=== PATIENT | female | born 1955 | race Caucasian/White ===

== ENCOUNTER → 2017-01-28 | Outpatient (CLI) | payer OTHER, MEDICAID | LOC: BMCIMAGING 09:07 → MERGE 09:07 | PROVIDERS: ATTEND Physician Assistant | DX: M16.12 Unilateral primary osteoarthritis, left hip (principal) ==

== ENCOUNTER → 2017-02-05 | Outpatient (CLI) | payer OTHER, MEDICAID | LOC: FIMAGING 09:30 | PROVIDERS: ATTEND Orthopaedic Surgery Orthopaedic Surgery of the Spine | DX: Z09 Encounter for follow-up examination after completed treatment for conditions other than malignant neoplasm (principal); Z98.1 Arthrodesis status ==

== ENCOUNTER → 2017-02-11 | Outpatient (CLI) | payer OTHER, MEDICAID | LOC: BMCIMAGING 08:50 | PROVIDERS: ATTEND Orthopaedic Surgery | DX: M25.552 Pain in left hip (principal) ==

== ENCOUNTER → 2017-04-22 | Outpatient (CLI) | payer OTHER, MEDICAID ==
[~2017-04-22] MED LIST: MIDAZOLAM 2 MG/2 ML VIAL ONE
== END ==
LOC: FIMAGING 10:42
PROVIDERS: ATTEND Orthopaedic Surgery
DX: Z01.818 Encounter for other preprocedural examination (principal); M16.12 Unilateral primary osteoarthritis, left hip; Z96.641 Presence of right artificial hip joint
CPT/HCPCS: J2250

== ENCOUNTER 2017-04-27 10:00 | Inpatient (IN) | payer OTHER, MEDICAID ==
[2017-04-21 10:57] LABS: % IMMATURE GRANULYOCYTES 0.2 % (0.0-1.1); ABSOLUTE IMMATURE GRANULOCYTES 0.01 10^3/uL (0.00-0.10); ADD DIFF? NO; ADD MORPH? NO; ADD SCAN? NO; ATYPICAL LYMPHOCYTE FLAG 0 (0-99); FRAGMENT RBC FLAG 20 (0-99); HEMATOCRIT 44.7 % (38.0-47.0); LEFT SHIFT FLG 0 (0-99); LIPEMIA HEMOLYSIS FLAG 80 (0-99); MEAN CELL HEMOGLOBIN 25.4 pg (27.9-34.1); MEAN CELL HEMOGLOBIN CONCENTR. 31.3 g/dL (32.4-36.7); MEAN CELL VOLUME 81.1 fL (81.5-99.8); PLATELET CLUMPS FLAG 0 (0-99); PLATELET COUNT 361 10^3/uL (150-400); RED BLOOD CELL COUNT 5.51 10^6/uL (4.18-5.33)
[~2017-04-27 10:00] MED LIST changes: +CALCIUM CHLORIDE 1 GM/10 ML INJ ONE; +CITRATE DEXTROSE SOLN 500 ML BAG ONE; -MIDAZOLAM 2 MG/2 ML VIAL ONE; +THROMBIN (BOVINE) 5,000 UNIT VIAL TP ONE; +ceFAZolin 1 GM/5 ML SYR ONE
[2017-04-27] MEDS ORDERED: FAMOTIDINE 20 MG TAB PO ONE (10:30)
[2017-04-27] MEDS ORDERED: ACETAMINOPHEN 325 MG TAB PO ONE (10:30)
[2017-04-27] MEDS ORDERED: TRANEXAMIC ACID IV ONE (10:30)
[2017-04-27] MEDS ORDERED: NS IV ONE (10:30)
[2017-04-27] MEDS ORDERED: CHLORHEXIDINE GLUC HIBICLENS 118 ML BTL TP ONE (10:30)
[2017-04-27] MEDS ORDERED: CEFAZOLIN 2 GM/DEXTROSE/100 ML BAG IV ONE (10:33)
[2017-04-27] MEDS ORDERED: LR 1,000 ML IV ONE (10:53)
[2017-04-27] MEDS ORDERED: ROPI/epiNEPH/KETOROLAC/morphINE JOINT COCKTAIL IU ONE (11:00)
[2017-04-27] MEDS ORDERED: PROPOFOL/EMULSION 500 MG/50 ML BOTTLE IV ONE (13:11)
[2017-04-27] MEDS ORDERED: VANCOMYCIN 1 GM VIAL ONE (14:00)
[2017-04-27] MEDS ORDERED: THROMBIN (BOVINE) 20,000 UNIT VIAL TP ONE (14:13)
[2017-04-27] MEDS ORDERED: HYDROmorphONE/DILAUDID 2 MG/ML INJ ONE (14:44)
[2017-04-27] MEDS ORDERED: PHENYLEPHRINE HCL 100 MCG/ML SYR ONE (15:02)
[2017-04-27] MEDS ORDERED: DEXAMETHASONE 4 MG/ML VIAL ONE (15:02)
[2017-04-27] MEDS ORDERED: epHEDrine SULFATE 10 MG/ML SYR ONE ×2 (15:02→15:47)
[2017-04-27] MEDS ORDERED: ROCURONIUM 50 MG/5 ML VIAL ONE (15:31)
[2017-04-27] MEDS ORDERED: ONDANSETRON 4 MG/2 ML VIAL ONE (15:50)
[2017-04-27] MEDS ORDERED: VASOPRESSIN 20 UNIT/ML VIAL ONE (15:50)
[2017-04-27] MEDS ORDERED: GLYCOPYRROLATE 0.2 MG/1 ML VIAL ONE (15:51)
[2017-04-27] MEDS ORDERED: NEOSTIGMINE METHYLSULFATE 5 MG/5 ML SYR ONE (15:51)
[2017-04-27] MEDS ORDERED: PHARMACY PAIN CONSULT 1 EA MISC PRN (16:03)
[2017-04-27] MEDS ORDERED: MAGNESIUM HYDROXIDE 30 ML UDCUP PO PRN (16:03)
[2017-04-27] MEDS ORDERED: PROMETHAZINE HCL 25 MG/ML INJ IVP PRN (16:03)
[2017-04-27] MEDS ORDERED: PROMETHAZINE HCL 25 MG SUPPR PR PRN (16:03)
[2017-04-27] MEDS ORDERED: diphenhydrAMINE 25 MG CAP PO PRN (16:03)
[2017-04-27] MEDS ORDERED: TEMAZEPAM 15 MG CAP PO PRN (16:03)
[2017-04-27] MEDS ORDERED: POLYETHYLENE GLYCOL 3350 17 GM PKT PO PRN (16:03)
[2017-04-27] MEDS ORDERED: LACTULOSE 20 GM/30 ML UDCUP PO PRN (16:03)
[2017-04-27] MEDS ORDERED: BISACODYL 10 MG SUPP PR PRN (16:03)
[2017-04-27] MEDS ORDERED: ONDANSETRON 4 MG/2 ML VIAL IVP PRN (16:03)
[2017-04-27] MEDS ORDERED: ONDANSETRON DISINTEGRATING 4 MG TAB PO PRN (16:03)
[2017-04-27] MEDS ORDERED: MEPERIDINE 25 MG/ML SYR ONE (16:18)
[2017-04-27] MEDS ORDERED: LR 1,000 ML IV SCH (16:30)
[2017-04-27] MEDS: ACETAMINOPHEN 325 MG TAB PO SCH (18:29)
[2017-04-27] MEDS: HYDROmorphONE/DILAUDID 1 MG/ML SYR IVP PRN ×2 (19:09→21:49)
[2017-04-27] MEDS: DIAZEPAM 5 MG TAB PO PRN (19:51)
[2017-04-27] MEDS: SENNOSIDES/DOCUSATE SODIUM TAB PO SCH (19:56)
[2017-04-27] MEDS: FAMOTIDINE 20 MG TAB PO SCH (19:56)
[2017-04-27] MEDS: ASPIRIN 325 MG TAB PO SCH (19:56)
[2017-04-27] MEDS ORDERED: oxyCODONE CR 15 MG TAB PO SCH (21:00)
[2017-04-27] MEDS ORDERED: CYCLOSPORINE 0.05% 1 EACH BOX EACHEYE SCH (21:00)
[2017-04-27] MEDS: traMADol 50 MG TAB PO PRN (21:20)
[2017-04-27] MEDS: oxyCODONE IR 5 MG TAB PO PRN (21:55)
[2017-04-27] MEDS: RESTASIS EYE DROPS EACHEYE SCH (21:57)
[2017-04-28] MEDS: ACETAMINOPHEN 325 MG TAB PO SCH ×3 (00:10→12:11)
[2017-04-28] MEDS: oxyCODONE IR 5 MG TAB PO PRN ×3 (02:07→12:12)
[2017-04-28] MEDS: DIAZEPAM 5 MG TAB PO PRN ×2 (02:07→08:36)
[2017-04-28] MEDS: traMADol 50 MG TAB PO PRN (04:35)
[2017-04-28] MEDS: HYDROmorphONE/DILAUDID 1 MG/ML SYR IVP PRN (04:40)
[2017-04-28 05:01] LABS: HEMATOCRIT 27.7 % (38.0-47.0); HEMOGLOBIN 8.9 g/dL (12.6-16.3)
[2017-04-28] MEDS ORDERED: DULoxetine 60 MG CAP PO SCH ×2 (05:30→09:00)
--- NOTE | 2017-04-28 07:07 | PDIAF ---
- Diagnosis Diagnosis: left hip djd Code Status: Full Code - Medication Management Discharge Medications: Medications to Continue on Transfer DULoxetine [Cymbalta 60 MG (*)] 60 mg PO DAILY 04/13/17 [Last Taken 04/27/17 05: 30] Herbals/Supplements -Info Only 1 ea PO DAILY 04/13/17 [Last Taken 04/20/17] Multivitamins [Multivitamin (*)] 1 each PO DAILY 04/13/17 [Last Taken 04/20/17] Tapentadol HCl [Nucynta ER] 100 mg PO DAILY 04/13/17 [Last Taken Unknown] oxyCODONE CR [Oxycontin] 15 mg PO BID 04/13/17 [Last Taken 04/27/17 05:30] cycloSPORINE 0.05% [Restasis Opht Drops(*)] 1 drop EACHEYE BID 04/14/17 [Last Taken 04/27/17 05:30] Aspirin [Aspirin 325 mg (*)] 325 mg PO DAILY #0 tab 04/28/17 [Last Taken Unknown ] Diazepam [Valium 5 MG (*)] 5 mg PO Q6HRS PRN #30 tab 04/28/17 [Last Taken Unknown] oxyCODONE IR [Oxycodone Ir (*)] 5 - 15 mg PO Q4 PRN #90 tab 04/28/17 [Last Taken Unknown] Discharge Medications: Refer to the Discharge Home Medication list for PRN reason. - Orders Services needed: Physical Therapy Diet Recommendation: no restrictions on diet Diet Texture: Regular Texture Diet Activity/Weight Bearing Restrictions: wbat. rom as maribell, anterior hip precautions. daily dressing changes. may shower without bandage. no soaking or immersion. seek attn for drainage, redness, swelling. f/u at two weeks. aspirin 325 mg po daily - Follow Up Care Current Providers and Referrals: Kellee Nieves MD [Primary Care Provider] -
[2017-04-28 07:55] VITALS: BP 107/67; PULSE 105; RESP 18; TEMP 98; O2SAT 93
[2017-04-28] MEDS: ASPIRIN 325 MG TAB PO SCH (08:29)
[2017-04-28] MEDS: FAMOTIDINE 20 MG TAB PO SCH (08:30)
[2017-04-28] MEDS: SENNOSIDES/DOCUSATE SODIUM TAB PO SCH (08:31)
[2017-04-28] MEDS: RESTASIS EYE DROPS EACHEYE SCH (08:33)
[2017-04-28] MEDS ORDERED: MULTIVITAMINS 1 EACH TAB PO SCH (09:00)
[2017-04-28] MEDS ORDERED: TAPENTADOL HCL 100 MG PO SCH (09:00)
[2017-04-28] MEDS ORDERED: TAPENTADOL HCL 50 MG TAB PO SCH (09:00)
[2017-04-28] MEDS ORDERED: oxyCODONE CR 15 MG TAB PO SCH (09:00)
[2017-04-28] MEDS ORDERED: Herbals/Supplements -Info Only PO SCH (09:00)
--- NOTE | 2017-04-28 09:57 | GDS ---
[f rep st] DISCHARGE SUMMARY DISCHARGE DIAGNOSIS: Left hip degenerative joint disease. DISCHARGE DIAGNOSIS: Left hip degenerative joint disease. PROCEDURE: Left total hip arthroplasty. 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 She has previously undergone right total hip replacement. Her left hip she has intractabl e pain. She has failed all attempts at conservative management. I have, therefore, recommended tot al hip replacement. She understood the risks, benefits, alternatives, and wished to proceed. Writt en consent was signed and placed in the patient's chart. HOSPITAL COURSE: The patient was admitted to the floor after uncomplicated total hip arthroplasty. She tolerated the procedure well. Postoperatively, she had issues of pain control, but has chronic pain issues. At the time of discha rge, she is tolerating an oral diet. Her pain is well controlled on oral medicines. She is voiding without difficulty. Her dressing is clean, dry, and intact with minimal serous drainage. She has intact ankle plantar flexion, dorsiflexion, EHL function, 4/5 hip flexion strength. Sensation is in tact to light touch throughout both lower extremities. There is negative Homans bilaterally. X-ray s are stable. There is no fracture or lucency. DISCHARGE ACTIVITY: She is weightbearing as tolerated. Anterior hip precautions. Daily dressing c hanges. May shower without the bandage. No soaking or immersion. Follow up in 2 weeks. Seek attention for increasing redness, swelling, drainage or discharge. DISCHARGE MEDICATIONS: Oxycodone 5 mg 1-3 every 4 hours p.r.n. pain and aspirin 325 mg daily. /[id number]/MODL
--- NOTE | 2017-04-28 11:31 | WOCRNPDOC ---
[facility] Advanced Assessment Note - Skin Integrity Problem, Advanced Assess Right Gluteal Cleft Blister Dressing Type: Allevyn Life Dressing Description: Clean/Dry, Intact Exudate Amount: None Integumentary Issue Intervention: Visualized Under Dressing Sandra Wound Tissue: Erythema, Non-blanching, Indurated Sandra Wound Swelling: Mild Wound Bed Color: [place] Wound Bed Constitution: Smooth Tissue, De-roofed Serous Blister Wound Edges: Epithelizing, Attached, Well Defined, Scarred Site Odor: None Site Measurement - Head-to-Toe Length X Width X Depth (cm): 0.6 x 0.5 x 0.2 Skin Integrity Problem Comment: De-roofed blister opening is clean, with a healing appearance. Flat, pink scar tissue is visible at left of gluteal cleft, opposite the open site, and two small, flat pink scars are visible adjacent to the coccyx. When asked whether she has had any pressure injuries (or "bedsores" ) in the past, patient reports that, "I get blisters different places when I eat sugar, because of fibromyalgia," and that, at home, she treats them with hydrogen peroxide and tea tree oil. Discussed alternatives for home care, including simple cleaning with soap and water, use of a dressing or a moisture barrier/skin protectant if helpful to protect from chafing. Provided with Calazime as an example of a protectant. Report to FRANCISCO J Alves.
== END 2017-04-28 13:06 | disposition home health service (06) | DRG 470 ==
LOC: F3N 10:00
PROVIDERS: ADMIT Orthopaedic Surgery; ATTEND Orthopaedic Surgery
PROC: 0SRB04Z Replacement of Left Hip Joint with Ceramic on Polyethylene Synthetic Substitute, Open Approach (ICD-10-PCS; principal; 2017-04-27 11:30)
DX: M16.12 Unilateral primary osteoarthritis, left hip (principal); G89.29 Other chronic pain; M79.7 Fibromyalgia; Z96.641 Presence of right artificial hip joint
CPT/HCPCS: 97110-GP; 97161-GP; 97165-GO; G8978-GP-CI; G8979-GP-CI; G8980-GP-CI; G8987-GO-CI; G8988-GO-CI; G8989-GO-CI; J0171; J0690; J1100; J1170; J1200; J1885; J2370; J2405; J2704; J2710; J2795; J3370; J7060

== ENCOUNTER 2017-05-06 16:27 | Emergency (ER) | payer OTHER, MEDICAID ==
--- NOTE | 2017-05-06 16:52 | EDPHY ---
H & P Stated Complaint: l hip surg on 04/27 having prob with incision/increased pain Time Seen by Provider: 05/06/17 16:40 HPI/ROS: CHIEF COMPLAINT: Left hip swelling HISTORY OF PRESENT ILLNESS: 61-year-old female postop day 8 post left hip arthroplasty by Dr. Noel Figueroa, has been performing daily physical therapy, ambulating, noticed last evening soft tissue swelling over her greater trochanteric region as well as faint erythema to her renee. No drainage. She has decreased ambulation secondary to pain. REVIEW OF SYSTEMS: A ten point review of systems was performed and is negative with the exception of the items mentioned in the HPI PAST MEDICAL & SURGICAL HISTORY: Postop day 8 post left hip arthroplasty SOCIAL HISTORY: nonsmoker PHYSICAL EXAM (Prior to examination, patient consented to physical exam, hands were washed and my usual and customary physical exam procedures followed) 1) GENERAL: Well-developed, well-nourished, alert and oriented. Appears nontoxic . 2) HEAD: Normocephalic, atraumatic 3) HEENT: . Sclera anicteric. 4) NECK: Full range of motion, no meningeal signs. 5) LUNGS: Clear auscultation bilaterally 6) HEART: Regular rate and rhythm, no murmur, no heave, no gallop. 7) ABDOMEN: No guarding, no rebound, no focal tenderness, 8) MUSCULOSKELETAL: Left lower extremity: Greater trochanteric suture line in place with no dehiscence, renee in place, there is exquisitely faint erythema which I do not think is consistent with cellulitis. There is soft tissue swelling and fluctuance in this area with no induration or erythema. She has limited range of motion of the left hip. No crepitus. Negative Homans no palpable cord. Soft compartments of the lower extremity. DP PT pulses are 2+ with brisk capillary refill . Normal color, normal warm foot 9) BACK: no visual or palpable abnormality. 10) SKIN: No rash, no petechiae. DIFFERENTIAL DIAGNOSIS: [in no particular order including but not limited to septic arthritis, postsurgical swelling, cellulitis, necrotizing fasciitis - Personal History Current Tetanus/Diphtheria Vaccine: Unsure - Medical/Surgical History Hx Asthma: No Hx Chronic Respiratory Disease: No Hx Diabetes: No Hx Cardiac Disease: No Hx Renal Disease: No Hx Cirrhosis: No Hx Alcoholism: No Hx HIV/AIDS: No Hx Splenectomy or Spleen Trauma: No Other PMH: chronic back pain, DJD, TBI AT 12YR, DYSTONIA BILATERAL ARMS, RT TOTAL HIP 2004, BILATERAL NEUROPATHY LOWER LEGS l hip surg - Social History Smoking Status: Never smoked Constitutional: Initial Vital Signs Temperature (C) 36.6 C 05/06/17 16:35 Heart Rate 113 H 05/06/17 16:35 Respiratory Rate 20 05/06/17 16:35 Blood Pressure 130/77 H 05/06/17 16:35 O2 Sat (%) 94 05/06/17 16:35 O2 Delivery Mode Room Air Allergies/Adverse Reactions: Iodinated Contrast Media - Oral and [Iodinated Contrast Media - IV Dye] Allergy (Severe, Verified 05/06/17 16:34) Hives etodolac [From Lodine] Allergy (Unknown, Verified 05/06/17 16:34) iodine Allergy (Unknown, Verified 05/06/17 16:34) Unknown cephalexin monohydrate [From Keflex] Allergy (Verified 05/06/17 16:34) clindamycin Allergy (Verified 05/06/17 16:34) cyclobenzaprine HCl [From Flexeril] Allergy (Verified 05/06/17 16:34) erythromycin base [Erythromycin Base] Allergy (Verified 05/06/17 16:34) fentanyl Allergy (Verified 05/06/17 16:34) gabapentin [From Neurontin] Allergy (Verified 05/06/17 16:34) lidocaine Allergy (Verified 05/06/17 16:34) metronidazole [From Flagyl] Allergy (Verified 05/06/17 16:34) morphine Allergy (Verified 05/06/17 16:34) Penicillins Allergy (Verified 05/06/17 16:34) SWELLING ropivacaine HCl [From Naropin] Allergy (Verified 05/06/17 16:34) Sulfa (Sulfonamide Antibiotics) Allergy (Verified 05/06/17 16:34) Tetracyclines Allergy (Verified 05/06/17 16:34) trihexyphenidyl HCl [From Artane] Allergy (Verified 05/06/17 16:34) Home Medications: Medication Instructions Recorded DULoxetine [Cymbalta 60 MG (*)] 60 mg PO DAILY 04/13/17 Herbals/Supplements -Info Only 1 ea PO DAILY 04/13/17 Multivitamins [Multivitamin (*)] 1 each PO DAILY 04/13/17 Tapentadol HCl [Nucynta ER] 100 mg PO DAILY 04/13/17 oxyCODONE CR [Oxycontin] 15 mg PO BID 04/13/17 cycloSPORINE 0.05% [Restasis Opht 1 drop EACHEYE BID 04/14/17 Drops(*)] Aspirin [Aspirin 325 mg (*)] 325 mg PO DAILY #0 tab 04/28/17 Diazepam [Valium 5 MG (*)] 5 mg PO Q6HRS PRN #30 tab 04/28/17 oxyCODONE IR [Oxycodone Ir (*)] 5 - 15 mg PO Q4 PRN #90 tab 04/28/17 Medical Decision Making - Diagnostics Imaging Results: Imaging Impressions Hip X-Ray 05/06/17 16:48 Impression: Stable positioning of bilateral hip arthroplasties, compared to 2016. Extremity Venous Study 05/06/17 16:52 Impression: No deep venous thrombosis left leg. Results called to Javier Herrera PA-C, at 5:40 PM. Images reviewed by myself Procedures: Procedure: Aspiration of suspected seroma Indications: Suspected seroma at surgical site Indications risks benefits discussed with patient including but not limited to infection, bleeding. Skin was prepped draped normal sterile fashion. The skin wheal was made with 1% lidocaine with epinephrine. An 18 gauge needle was introduced lateral to the incision site and 30 cc of serosanguineous material aspirated and sent to laboratory for wound culture. Patient tolerated procedure well ED Course/Re-evaluation: 6:20 p.m.: Phone consultation Dr. Noel Figueroa, discussed physical exam findings, normal white blood cell count. He thinks that postoperative seroma is more than likely in this patient. He recommended wound aspiration using sterile technique and follow up in the office in next 1-2 days with EZ Bangura Wound aspiration was performed by myself revealing serosanguineous material which is sent to laboratory for culture. Doubt infectious etiology. Doubt cellulitis. Doubt wound infection. Plan will be discharge home, follow up in orthopedic office or Thursday (today is Thursday). Patient is comfortable with this plan. Patient also seen and examined by Dr De La Cruz - Data Points Laboratory Results: Laboratory Results 05/06/17 18:03 05/06/17 18:03 05/06/17 05/06/17 05/06/17 18:45 18:03 18:03 WBC 5.55 10^3/uL 10^3/uL (3.80-9.50) RBC 3.51 10^6/uL L 10^6/uL (4.18-5.33) Hgb 9.1 g/dL L g/dL (12.6-16.3) Hct 29.0 % L % (38.0-47.0) MCV 82.6 fL fL (81.5-99.8) MCH 25.9 pg L pg (27.9-34.1) MCHC 31.4 g/dL L g/dL (32.4-36.7) RDW 18.5 % H % (11.5-15.2) Plt Count 452 10^3/uL H 10^3/uL (150-400) MPV 8.7 fL fL (8.7-11.7) Neut % (Auto) 52.1 % % (39.3-74.2) Lymph % (Auto) 31.4 % % (15.0-45.0) Pepin % (Auto) 10.6 % % (4.5-13.0) Eos % (Auto) 4.7 % % (0.6-7.6) Baso % (Auto) 0.7 % % (0.3-1.7) Nucleat RBC Rel Count 0.0 % % (0.0-0.2) Absolute Neuts (auto) 2.89 10^3/uL 10^3/uL (1.70-6.50) Absolute Lymphs (auto) 1.74 10^3/uL 10^3/uL (1.00-3.00) Absolute Monos (auto) 0.59 10^3/uL 10^3/uL (0.30-0.80) Absolute Eos (auto) 0.26 10^3/uL 10^3/uL (0.03-0.40) Absolute Basos (auto) 0.04 10^3/uL 10^3/uL (0.02-0.10) Absolute Nucleated RBC 0.00 10^3/uL 10^3/uL (0-0.01) Immature Gran % 0.5 % % (0.0-1.1) Immature Gran # 0.03 10^3/uL 10^3/uL (0.00-0.10) Sodium 139 mEq/L mEq/L (134-144) Potassium 4.8 mEq/L mEq/L (3.5-5.2) Chloride 107 mEq/L mEq/L (97-110) Carbon Dioxide 24 mEq/l mEq/l (22-31) Anion Gap 8 mEq/L mEq/L (8-16) BUN 17 mg/dL mg/dL (7-23) Creatinine 0.9 mg/dL mg/dL (0.6-1.0) Estimated GFR > 60 Glucose 113 mg/dL H mg/dL (70-100) Calcium 9.7 mg/dL mg/dL (8.5-10.4) Fluid Source Pending Fluid Color Pending Fluid Appearance Pending Fluid WBC Pending Fluid RBC Pending Departure - Departure Disposition: Home, Routine, Self-Care Clinical Impression: Seroma Condition: Good Instructions: Postoperative Bleeding (ED) Additional Instructions: Return to the ER if you develop fever, redness, or any other symptoms that concern you Referrals: Annette Bangura PA [Physician Air Quality Consultant] - 1 day without fail
[2017-05-06 17:49] VITALS: RESP 18
[2017-05-06 18:13] LABS: % IMMATURE GRANULYOCYTES 0.5 % (0.0-1.1); ABSOLUTE IMMATURE GRANULOCYTES 0.03 10^3/uL (0.00-0.10); ADD DIFF? NO; ADD MORPH? NO; ADD SCAN? NO; ATYPICAL LYMPHOCYTE FLAG 0 (0-99); FRAGMENT RBC FLAG 0 (0-99); HEMOGLOBIN 9.1 g/dL (12.6-16.3); LEFT SHIFT FLG 0 (0-99); LIPEMIA HEMOLYSIS FLAG 80 (0-99); MEAN CELL HEMOGLOBIN 25.9 pg (27.9-34.1); MEAN CELL HEMOGLOBIN CONCENTR. 31.4 g/dL (32.4-36.7); MEAN CELL VOLUME 82.6 fL (81.5-99.8); MEAN PLATELET VOLUME 8.7 fL (8.7-11.7); PLATELET CLUMPS FLAG 0 (0-99); PLATELET COUNT 452 10^3/uL (150-400); RED BLOOD CELL COUNT 3.51 10^6/uL (4.18-5.33); RED CELL DISTRIBUTION WIDTH 18.5 % (11.5-15.2)
[2017-05-06 18:29] LABS: ANION GAP 8 mEq/L (8-16); CALCIUM 9.7 mg/dL (8.5-10.4); CARBON DIOXIDE 24 mEq/l (22-31); CHLORIDE 107 mEq/L (97-110); CREATININE 0.9 mg/dL (0.6-1.0); GLOMERULAR FILTRATION RATE > 60; GLUCOSE 113 mg/dL (70-100); POTASSIUM 4.8 mEq/L (3.5-5.2); SODIUM 139 mEq/L (134-144)
[2017-05-06 19:21] VITALS: BP 108/81; PULSE 97; TEMP 98.1; O2SAT 95
== END 2017-05-06 19:22 | disposition home or self-care (01) ==
PROC: 0J9C3ZZ Drainage of Pelvic Region Subcutaneous Tissue and Fascia, Percutaneous Approach (ICD-10-PCS; principal; 2017-05-06)
DX: M96.842 Postprocedural seroma of a musculoskeletal structure following a musculoskeletal system procedure (principal); Z79.82 Long term (current) use of aspirin

== ENCOUNTER 2017-05-08 17:44 | Emergency (ER) | payer OTHER, MEDICAID ==
--- NOTE | 2017-05-08 19:14 | EDPHY ---
H & P Stated Complaint: Swelling at surg site again;wants it drained (see ED visit ) Source: Patient Exam Limitations: No limitations - Medical/Surgical History Hx Asthma: No Hx Chronic Respiratory Disease: No Hx Diabetes: No Hx Cardiac Disease: No Hx Renal Disease: No Hx Cirrhosis: No Hx Alcoholism: No Hx HIV/AIDS: No Hx Splenectomy or Spleen Trauma: No Other PMH: chronic back pain, DJD, TBI AT 12YR, DYSTONIA BILATERAL ARMS, RT TOTAL HIP 2004, BILATERAL NEUROPATHY LOWER LEGS, ant L hip surg - Social History Smoking Status: Never smoked Time Seen by Provider: 05/08/17 18:01 HPI/ROS: CHIEF COMPLAINT: requesting seroma drainage HISTORY OF PRESENT ILLNESS: 61-year-old female presents emergency department requesting a drainage of a left hip seroma. Patient was seen in the emergency department 2 days ago and had this drained. Patient had a left total hip replacement by Dr. Figueroa 10 days ago and has been doing well performing physical therapy, 3 nights ago developed soft tissue swelling over her greater trochanteric region, came to the emergency department and had this drained, no signs of infection no fevers. Patient was seen by the PA in her orthopedist's office yesterday and was told to come to the ER to have this drained if it reoccurred over the weekend. REVIEW OF SYSTEMS: A comprehensive 10 point review of systems is otherwise negative aside from elements mentioned in the history of present illness. (Angela Christie) - Physical Exam Exam: Physical Exam Gen: Alert and Oriented, NAD HEENT: PERRL, moist mucous membranes NECK: no meningismus CV: regular rate and regular rhythm PULM: CTAB, no wheezes ABDOMEN: soft, non tender to palpation, BS present BACK: No CVA tenderness NEURO: Neurologically grossly intact EXTREMITIES: Left hip renee in place, no dehiscence, no erythema or drainage , there is soft tissue swelling and mild fluctuance with no induration or erythema. Limited range of motion of left hip, no crepitus. 2+ pedal pulses, sensation intact to light touch. PSYCH: answers questions appropriately. (Angela Christie) Constitutional: Initial Vital Signs Temperature (C) 36.6 C 05/08/17 17:45 Heart Rate 112 H 06/16/17 17:45 Respiratory Rate 18 05/08/17 17:45 Blood Pressure 120/69 05/08/17 17:45 O2 Sat (%) 97 05/08/17 17:45 O2 Delivery Mode Room Air Allergies/Adverse Reactions: Iodinated Contrast Media - Oral and [Iodinated Contrast Media - IV Dye] Allergy (Severe, Verified 05/08/17 17:44) Hives etodolac [From Lodine] Allergy (Unknown, Verified 05/08/17 17:44) iodine Allergy (Unknown, Verified 05/08/17 17:44) Unknown cephalexin monohydrate [From Keflex] Allergy (Verified 05/08/17 17:44) clindamycin Allergy (Verified 05/08/17 17:44) cyclobenzaprine HCl [From Flexeril] Allergy (Verified 05/08/17 17:44) erythromycin base [Erythromycin Base] Allergy (Verified 05/08/17 17:44) fentanyl Allergy (Verified 05/08/17 17:44) gabapentin [From Neurontin] Allergy (Verified 05/08/17 17:44) lidocaine Allergy (Verified 05/08/17 17:44) metronidazole [From Flagyl] Allergy (Verified 05/08/17 17:44) morphine Allergy (Verified 05/08/17 17:44) Penicillins Allergy (Verified 05/08/17 17:44) SWELLING ropivacaine HCl [From Naropin] Allergy (Verified 05/08/17 17:44) Sulfa (Sulfonamide Antibiotics) Allergy (Verified 05/08/17 17:44) Tetracyclines Allergy (Verified 05/08/17 17:44) trihexyphenidyl HCl [From Artane] Allergy (Verified 05/08/17 17:44) Home Medications: Medication Instructions Recorded DULoxetine [Cymbalta 60 MG (*)] 60 mg PO DAILY 04/13/17 Herbals/Supplements -Info Only 1 ea PO DAILY 04/13/17 Multivitamins [Multivitamin (*)] 1 each PO DAILY 04/13/17 Tapentadol HCl [Nucynta ER] 100 mg PO DAILY 04/13/17 oxyCODONE CR [Oxycontin] 15 mg PO BID 04/13/17 cycloSPORINE 0.05% [Restasis Opht 1 drop EACHEYE BID 04/14/17 Drops(*)] Aspirin [Aspirin 325 mg (*)] 325 mg PO DAILY #0 tab 04/28/17 Diazepam [Valium 5 MG (*)] 5 mg PO Q6HRS PRN #30 tab 04/28/17 oxyCODONE IR [Oxycodone Ir (*)] 5 - 15 mg PO Q4 PRN #90 tab 04/28/17 Medical Decision Making Procedures: Procedure: Aspiration of suspected seroma Indications: Suspected cerumen surgical site Indications, risks and benefits were discussed with the patient including but not limited to infection, bleeding. Skin was prepped and draped with normal sterile fashion, the skin wheal was made with 1% lidocaine without epinephrine, an 18 gauge needle was introduced lateral to the incision site, no fluid returned. (Angela Christie) ED Course/Re-evaluation: I had a long discussion with the patient that draining this again could introduce infection and it does not look significant to need a drainage in my opinion. I discussed the risks including introducing infection, patient still would like this drained. I attempted to drain is in sterile fashion, no fluid returned. Pressure dressing was placed and patient will follow up with her orthopedist as scheduled on Thursday. She is given strict return precautions for worsening symptoms. I have told her to keep pressure dressing in place until follow-up. ( Angela Christie) I did not see this patient while she was in the emergency department. However her care was discussed with the nurse practitioner while the patient was in the department. I agree with treatment plan and management (Reginaldo Osorio) Departure - Departure Disposition: Home, Routine, Self-Care Clinical Impression: Seroma Condition: Good Instructions: Swollen Hip Joint (ED) Additional Instructions: Rest, keep compression on this as much as possible until you follow up with your orthopedist as scheduled on Thursday. Return to the emergency department for worsening symptoms, new symptoms or concerns. Referrals: Noel Figueroa MD [Medical Doctor] - As per Instructions
[2017-05-08 19:52] VITALS: BP 130/74; PULSE 80; RESP 14; TEMP 98.4; O2SAT 94
== END 2017-05-08 19:52 | disposition home or self-care (01) ==
PROC: 0H9JXZZ Drainage of Left Upper Leg Skin, External Approach (ICD-10-PCS; principal; 2017-05-08)
DX: M96.842 Postprocedural seroma of a musculoskeletal structure following a musculoskeletal system procedure (principal); Z79.82 Long term (current) use of aspirin

== ENCOUNTER 2017-05-25 15:01 | Emergency (ER) | payer OTHER, MEDICAID ==
[2017-05-25 15:08] VITALS: O2SAT 94
--- NOTE | 2017-05-25 15:25 | EDPHY ---
H & P Stated Complaint: l hip surgery 04/27 dr figueroa/having prob with pain and difficulty walking Time Seen by Provider: 05/25/17 15:15 HPI/ROS: CHIEF COMPLAINT: Left hip pain HISTORY OF PRESENT ILLNESS: The patient is a 61-year-old female who comes to the emergency department complaining of left hip pain. She had her hip replaced [address] Figueroa. Was complicated by small seroma that was drained twice. For the last few weeks has been doing well. However the last 4 days she has had gradually increasing pain ever since she sat down awkwardly on her bed. She thought she pulled a muscle in was seen by physical therapy. Now today she cannot bear weight at all without using crutches. No fevers. No new swelling. No obvious deformity. She called Dr. Figueroa who recommended she come here for x-rays. She does have bilateral paresthesias from previous injuries to each leg. No new weakness numbness or deficits. No bowel or bladder abnormalities REVIEW OF SYSTEMS: Constitutional: denies: chills, fever, recent illness, recent injury EENTM: denies: blurred vision, double vision, nose congestion Respiratory: denies: cough, shortness of breath Cardiac: denies: chest pain, irregular heart rate, lightheadedness, palpitations Gastrointestinal/Abdominal: denies: abdominal pain, diarrhea, nausea, vomiting, blood streaked stools Genitourinary: denies: dysuria, frequency, hematuria, pain Musculoskeletal: See HPI Skin: denies: lesions, rash, jaundice, bruising Neurological: denies: headache, numbness, paresthesia, tingling, dizziness, weakness Hematologic/Lymphatic: denies: blood clots, easy bleeding, easy bruising Immunologic/allergic: denies: HIV/AIDS, transplant EXAM: GENERAL: Well-appearing, well-nourished and in no acute distress. HEAD: Atraumatic, normocephalic. EYES: Pupils equal round and reactive to light, extraocular movements intact, sclera anicteric, conjunctiva are normal. ENT: TMs normal, nares patent, oropharynx clear without exudates. Moist mucous membranes. NECK: Normal range of motion, supple without lymphadenopathy or JVD. LUNGS: Breath sounds clear to auscultation bilaterally and equal. No wheezes rales or rhonchi. HEART: Regular rate and rhythm without murmurs, rubs or gallops. ABDOMEN: Soft, nontender, normoactive bowel sounds. No guarding, no rebound. No masses appreciated. BACK: No CVA tenderness, no spinal tenderness, step-offs or deformities EXTREMITIES: Left hip pain, pain with weight-bearing, pain with range of motion. Incision clean dry and intact. No erythema. NEUROLOGICAL: Cranial nerves II through XII grossly intact. Normal speech, normal gait. 5/5 strength, normal movement in all extremities, normal sensation PSYCH: Normal mood, normal affect. SKIN: Warm, dry, normal turgor, no visible rashes or lesions. Source: Patient Exam Limitations: No limitations - Personal History Current Tetanus/Diphtheria Vaccine: Unsure - Medical/Surgical History Hx Asthma: No Hx Chronic Respiratory Disease: No Hx Diabetes: No Hx Cardiac Disease: No Hx Renal Disease: No Hx Cirrhosis: No Hx Alcoholism: No Hx HIV/AIDS: No Hx Splenectomy or Spleen Trauma: No Other PMH: chronic back pain, DJD, TBI AT 12YR, DYSTONIA BILATERAL ARMS, RT TOTAL HIP 2004, BILATERAL NEUROPATHY LOWER LEGS, ant L hip surg - Family History Significant Family History: No pertinent family hx - Social History Smoking Status: Never smoked Alcohol Use: Sober Drug Use: None Constitutional: Initial Vital Signs Temperature (C) 36.8 C 05/25/17 15:06 Heart Rate 93 05/25/17 15:06 Respiratory Rate 17 05/25/17 15:06 Blood Pressure 118/82 H 05/25/17 15:06 O2 Sat (%) 94 05/25/17 15:06 O2 Delivery Mode Room Air Allergies/Adverse Reactions: Iodinated Contrast Media - Oral and [Iodinated Contrast Media - IV Dye] Allergy (Severe, Verified 05/25/17 15:05) Hives etodolac [From Lodine] Allergy (Unknown, Verified 05/25/17 15:05) iodine Allergy (Unknown, Verified 05/25/17 15:05) Unknown cephalexin monohydrate [From Keflex] Allergy (Verified 05/25/17 15:05) clindamycin Allergy (Verified 05/25/17 15:05) cyclobenzaprine HCl [From Flexeril] Allergy (Verified 05/25/17 15:05) erythromycin base [Erythromycin Base] Allergy (Verified 07/03/17 15:05) fentanyl Allergy (Verified 05/25/17 15:05) gabapentin [From Neurontin] Allergy (Verified 05/25/17 15:05) lidocaine Allergy (Verified 05/25/17 15:05) metronidazole [From Flagyl] Allergy (Verified 05/25/17 15:05) morphine Allergy (Verified 05/25/17 15:05) Penicillins Allergy (Verified 05/25/17 15:05) SWELLING ropivacaine HCl [From Naropin] Allergy (Verified 05/25/17 15:05) Sulfa (Sulfonamide Antibiotics) Allergy (Verified 05/25/17 15:05) Tetracyclines Allergy (Verified 05/25/17 15:05) trihexyphenidyl HCl [From Artane] Allergy (Verified 05/25/17 15:05) Home Medications: Medication Instructions Recorded DULoxetine [Cymbalta 60 MG (*)] 60 mg PO DAILY 04/13/17 Herbals/Supplements -Info Only 1 ea PO DAILY 04/13/17 Multivitamins [Multivitamin (*)] 1 each PO DAILY 04/13/17 Tapentadol HCl [Nucynta ER] 100 mg PO DAILY 04/13/17 cycloSPORINE 0.05% [Restasis Opht 1 drop EACHEYE BID 04/14/17 Drops(*)] Aspirin [Aspirin 325 mg (*)] 325 mg PO DAILY #0 tab 04/28/17 Diazepam [Valium 5 MG (*)] 5 mg PO Q6HRS PRN #30 tab 04/28/17 oxyCODONE IR [Oxycodone Ir (*)] 5 - 15 mg PO Q4 PRN #90 tab 04/28/17 Medical Decision Making - Diagnostics Imaging Results: Imaging Impressions Hip X-Ray 05/25/17 15:18 Impression: Postsurgical changes of left total hip arthroplasty with good alignment in appearance and a stable appearance to the comparison exam. Imaging: I viewed and interpreted images myself ED Course/Re-evaluation: I discussed the case with Dr. Figueroa who reviewed the x-rays. Patient is reassured. She will follow up with him in his office this week. She declines further workup or testing at this time. She is able to ambulate with light weight-bearing. Differential Diagnosis: Partial list of the Differential diagnosis considered include but were not limited to; hip fracture, dislocation and although unlikely based on the history and physical exam, I also considered infection, seroma. I discussed these differential diagnoses and the plan with the patient as well as the usual and expected course. The patient understands that the diagnosis is provisional and that in medicine we are not always correct and that further workup is often warranted. Usual and customary warnings were given. All of the patient's questions were answered. The patient was instructed to return to the emergency department should the symptoms at all worsen or return, otherwise to followup with the physician as we discussed. Departure - Departure Disposition: Home, Routine, Self-Care Clinical Impression: Hip pain, left Condition: Fair Instructions: Hip Pain (ED) Referrals: Kellee Nieves MD [Primary Care Provider] - As per Instructions Noel Figueroa MD [Medical Doctor] - As per Instructions
[2017-05-25 17:08] VITALS: BP 112/78; PULSE 78; RESP 14; TEMP 98.1
== END 2017-05-25 17:06 | disposition home or self-care (01) ==
DX: M25.552 Pain in left hip (principal); G89.18 Other acute postprocedural pain; Z79.82 Long term (current) use of aspirin

== ENCOUNTER → 2017-06-11 | Outpatient (CLI) | payer OTHER, MEDICAID | LOC: BMCIMAGING 08:58 | PROVIDERS: ATTEND Physician Assistant | DX: Z47.1 Aftercare following joint replacement surgery (principal); Z96.643 Presence of artificial hip joint, bilateral ==

== ENCOUNTER → 2017-07-16 | Outpatient (CLI) | payer OTHER, MEDICAID | LOC: FIMAGING 09:20 | PROVIDERS: ATTEND Orthopaedic Surgery Orthopaedic Surgery of the Spine | DX: Z09 Encounter for follow-up examination after completed treatment for conditions other than malignant neoplasm (principal); Z98.1 Arthrodesis status ==

== ENCOUNTER → 2017-07-23 | Outpatient (CLI) | payer OTHER, MEDICAID | LOC: BMCIMAGING 08:48 | PROVIDERS: ATTEND Physician Assistant | DX: Z47.1 Aftercare following joint replacement surgery (principal); Z96.642 Presence of left artificial hip joint ==

== ENCOUNTER → 2018-01-14 | Outpatient (CLI) | payer OTHER, MEDICAID | LOC: FIMAGING 09:13 | PROVIDERS: ATTEND Orthopaedic Surgery Orthopaedic Surgery of the Spine | DX: Z09 Encounter for follow-up examination after completed treatment for conditions other than malignant neoplasm (principal); Z98.1 Arthrodesis status ==

== ENCOUNTER → 2018-01-26 | Outpatient (CLI) | payer OTHER, MEDICAID | LOC: FIMAGING 08:51 | PROVIDERS: ATTEND Physical Medicine & Rehabilitation Neuromuscular Medicine | DX: Z09 Encounter for follow-up examination after completed treatment for conditions other than malignant neoplasm (principal); Z98.1 Arthrodesis status; M41.86 Other forms of scoliosis, lumbar region ==

== ENCOUNTER → 2018-04-08 | Outpatient (CLI) | payer OTHER, MEDICAID | LOC: BMCIMAGING 09:04 | PROVIDERS: ATTEND Physician Assistant | DX: M17.11 Unilateral primary osteoarthritis, right knee (principal); M89.8X8 Other specified disorders of bone, other site; Z96.642 Presence of left artificial hip joint ==

== ENCOUNTER → 2018-04-15 | Outpatient (CLI) | payer OTHER, MEDICAID | LOC: FIMAGING 10:44 | PROVIDERS: ATTEND Physician Assistant | DX: Z47.1 Aftercare following joint replacement surgery (principal); T84.031A Mechanical loosening of internal left hip prosthetic joint, initial encounter; S32.402A Unspecified fracture of left acetabulum, initial encounter for closed fracture; Z96.642 Presence of left artificial hip joint | CPT/HCPCS: 78315; A9503 ==

== ENCOUNTER → 2018-09-23 | Outpatient (CLI) | payer OTHER, MEDICAID | LOC: BMCIMAGING 09:33 | PROVIDERS: ATTEND Physician Assistant | DX: T84.091A Other mechanical complication of internal left hip prosthesis, initial encounter (principal); S32.402D Unspecified fracture of left acetabulum, subsequent encounter for fracture with routine healing; Z96.642 Presence of left artificial hip joint ==

== ENCOUNTER → 2018-11-10 | Outpatient (CLI) | payer OTHER, MEDICAID | LOC: FIMAGING 07:02 | PROVIDERS: ATTEND Family Medicine | DX: N20.0 Calculus of kidney (principal); B27.90 Infectious mononucleosis, unspecified without complication ==

== ENCOUNTER → 2019-01-05 | Outpatient (CLI) | payer OTHER, MEDICAID | LOC: FIMAGING 12:37 | PROVIDERS: ATTEND Family Medicine | DX: R59.1 Generalized enlarged lymph nodes (principal) ==

== ENCOUNTER → 2019-02-10 | Outpatient (CLI) | payer OTHER, MEDICAID | LOC: FIMAGING 12:19 | PROVIDERS: ATTEND Registered Nurse | DX: M48.02 Spinal stenosis, cervical region (principal); M54.12 Radiculopathy, cervical region; M50.30 Other cervical disc degeneration, unspecified cervical region ==

== ENCOUNTER → 2019-02-25 | Outpatient (CLI) | payer OTHER, MEDICAID | LOC: BMCIMAGING 13:39 | PROVIDERS: ATTEND Physician Assistant | DX: S32.46 Associated transverse-posterior fracture of acetabulum (principal) ==

== ENCOUNTER → 2019-03-09 | Outpatient (CLI) | payer OTHER, MEDICAID | LOC: GIMAGING 14:34 | PROVIDERS: ATTEND Nurse Practitioner Family | DX: M25.522 Pain in left elbow (principal) | CPT/HCPCS: 73080-PO ==

== ENCOUNTER → 2019-03-09 | Outpatient (CLI) | payer OTHER, MEDICAID | LOC: FIMAGING 12:24 | PROVIDERS: ATTEND Family Medicine | DX: M62.838 Other muscle spasm (principal); M79.661 Pain in right lower leg ==